=== PATIENT | male | born 1990 | race Caucasian/White ===

== ENCOUNTER 2018-09-11 07:48 | Emergency (ER) | payer MEDICAID ==
[~2018-09-11] VITALS: Ht 177.8 cm; Wt 85.0 kg
[2018-09-11 09:27] VITALS: BP 121/97
== END 2018-09-11 09:40 | disposition home or self-care (01) ==
LOC: EMS 07:49
DX: S01.01XA Laceration without foreign body of scalp, initial encounter (principal); W22.8XXA Striking against or struck by other objects, initial encounter; Y93.89 Activity, other specified; Y92.89 Other specified places as the place of occurrence of the external cause; Y99.8 Other external cause status
CPT/HCPCS: 12001